=== PATIENT | male | born 1935 | race Caucasian/White ===

== ENCOUNTER 2016-05-04 22:53 | Emergency (ER) | payer MEDICARE, OTHER ==
[2016-05-04 23:34] VITALS: BP 133/71
--- NOTE | 2016-05-04 23:34 | EDM.PDOC ---
ED HPI GENERAL MEDICAL PROBLEM - General Chief Complaint: General Stated Complaint: SURGERY ON ;DISORIENTED Time Seen by Provider: 05/04/16 23:32 Source of Information: Reports: Patient, Family History Limitations: Reports: No limitations - History of Present Illness INITIAL COMMENTS - FREE TEXT/NARRATIVE: family states Pt s/p surgery 3 days taking pain meds but got confused not himself, PMD rec' to ER for r/o sepsis. Pt has no c/o & pain free. - Related Data Allergies Allergy/AdvReac Type Severity Reaction Status Date / Time No Known Allergies Allergy Verified 05/04/16 23:36 Home Meds: Home Meds Oxybutynin 10 mg PO BEDTIME 11/17/14 [History] Simvastatin [Simvastatin] 10 mg PO BEDTIME 11/17/14 [History] Terazosin [Hytrin] 5 mg PO BEDTIME 11/17/14 [History] metFORMIN [Glucophage XR] 1,000 mg PO BID 11/17/14 [History] Cyanocobalamin (Vitamin B-12) [B-12] 1,000 mcg PO DAILY 08/26/15 [History] Ketorolac [Acular 0.5% Ophth Soln] 1 drop EYEBOTH ASDIRECTED PRN 02/28/16 [ History] Moxifloxacin [Vigamox 0.5% Ophth Soln] 1 drop EYEBOTH ASDIRECTED 02/28/16 [ History] prednisoLONE Acetate [Pred Forte 1% Ophth Susp] 1 drop EYEBOTH ASDIRECTED [History] oxyCODONE HCl/Acetaminophen [oxyCODONE-Acetaminophen 5-325] 1 tab PO Q4H PRN [History] Past Medical History HEENT History: Reports: Cataract, Hard of hearing Other HEENT History: wears glasses Cardiovascular History: Reports: Aneurysm Respiratory History: Reports: None Gastrointestinal History: Reports: Chronic diarrhea Genitourinary History: Reports: Renal calculus Other Genitourinary History: urge incontinence of urine Musculoskeletal History: Reports: None, Arthritis, Back pain, chronic Neurological History: Reports: None Psychiatric History: Reports: None Endocrine/Metabolic History: Reports: Diabetes, type II Hematologic History: Reports: B12 deficiency, Idiopathic thrombocytopenia Immunologic History: Reports: None Oncologic (Cancer) History: Reports: Prostate Dermatologic History: Reports: None - Infectious Disease History Infectious Disease History: Reports: Chicken pox, Shingles - Past Surgical History Head Surgeries/Procedures: Reports: None HEENT Surgical History: Reports: Cataract surgery Cardiovascular Surgical History: Reports: None GI Surgical History: Reports: Hernia, inguinal Male Surgical History: Reports: Prostate Biopsy Social & Family History - Tobacco Use Smoking Status *Q: Former Smoker Years of Tobacco use: 40 Packs/Tins Daily: 2 Month Tobacco Last Used: july Second Hand Smoke Exposure: No - Caffeine Use Caffeine Use: Reports: Coffee - Recreational Drug Use Recreational Drug Use: No - Living Situation & Occupation Living situation: Reports: alone Occupation: retired ED ROS GENERAL - Review of Systems Review Of Systems: ROS reveals no pertinent complaints other than HPI. ED EXAM, GENERAL - Physical Exam Exam: See Below Exam Limited By: No limitations General Appearance: alert, WD/WN, no apparent distress Ears: hearing grossly normal Throat/Mouth: Normal voice, No airway compromise Head: atraumatic Neck: non-tender, full range of motion Respiratory/Chest: no respiratory distress Cardiovascular: regular rate, rhythm GI/Abdominal: soft, non tender. No: distended, guarding, rigid, rebound, tender Neurological: alert, oriented, normal cognition, normal gait, no motor/sensory deficits Psychiatric: normal affect, normal mood Skin Exam: Warm, Dry Lymphatic: no adenopathy Course - Vital Signs Last Recorded V/S: Last Vital Signs Temp 36.9 C 05/04/16 23:24 Pulse 93 05/04/16 23:24 Resp 20 05/04/16 23:24 BP 133/71 05/04/16 23:24 Pulse Ox 94 L 05/04/16 23:24 - Orders/Labs/Meds Orders: Active Orders 24 hr Category Date Time Status CULTURE BLOOD [BC] Stat Lab 05/04/16 23:53 Received Labs: Laboratory Tests 05/04/16 05/04/16 05/04/16 Range/Units 23:53 23:53 23:53 WBC 6.3 (5.0-10.0) 10^3/uL RBC 4.22 L (4.6-6.2) 10^6/uL Hgb 12.8 L (14.0-18.0) g/dL Hct 37.0 L (40.0-54.0) % MCV 87.7 (80-100) fL MCH 30.3 (27.0-34.0) pg MCHC 34.6 (33.0-35.0) g/dL Plt Count 108 L (150-450) 10^3/uL Neut % (Auto) 69.2 (42.2-75.2) % Lymph % (Auto) 19.3 L (20.5-50.1) % [place] % (Auto) 10.0 H (2-8) % Eos % (Auto) 1.3 (1.0-3.0) % Baso % (Auto) 0.2 (0.0-1.0) % Sodium 136 (135-145) mmol/L Potassium 3.6 (3.6-5.0) mmol/L Chloride 96 L (101-111) mmol/L Carbon Dioxide 30.0 (21.0-31.0) mmol/L Anion Gap 13.6 BUN 12 (7-18) mg/dL Creatinine 1.0 (0.6-1.3) mg/dL Est Cr Clr Drug Dosing 57.00 mL/min Estimated GFR (MDRD) > 60 BUN/Creatinine Ratio 12.00 Glucose 212 H (74-105) mg/dL Lactic Acid 1.2 (0.5-2.2) mmol/L Calcium 8.9 (8.4-10.2) mg/dl Total Bilirubin 1.1 H (0.2-1.0) mg/dL AST 17 (10-42) IU/L ALT 9 L (10-60) IU/L Alkaline Phosphatase 47 (42-121) IU/L Total Protein 6.9 (6.7-8.2) g/dl Albumin 3.9 (3.2-5.5) g/dl Globulin 3.0 Albumin/Globulin Ratio 1.30 - Re-Assessments/Exams Free Text/Narrative Re-Assessment/Exam: 05/05/16 00:52 results discussed with Pt & family. Departure - Departure Time of Disposition: 00:52 Disposition: Home, Self-Care 01 Condition: good Clinical Impression: Medication reaction Forms: ED Department Discharge Additional Instructions: 1) only give pain meds if need them for pain 2) follow up with family doctor or recheck as needed - My Orders Last 24 Hours: My Active Orders 05/04/16 23:53 CULTURE BLOOD [BC] Stat - Assessment/Plan Last 24 Hours: My Active Orders 05/04/16 23:53 CULTURE BLOOD [BC] Stat
[2016-05-05 00:32] LABS: CHLORIDE,CL 96 mmol/L (101-111); SODIUM,NA 136 mmol/L (135-145)
== END 2016-05-05 01:01 | disposition home or self-care (01) ==
LOC: DL.ED 22:53
DX: T50.905A Adverse effect of unspecified drugs, medicaments and biological substances, initial encounter (principal); E11.9 Type 2 diabetes mellitus without complications; Z87.891 Personal history of nicotine dependence
CPT/HCPCS: 36415; 80053; 83605; 85025; 87040; 99282; 99284

== ENCOUNTER 2016-06-22 13:49 | Emergency (ER) | payer MEDICARE, OTHER ==
[2016-06-22 14:15] VITALS: BP 135/71
--- NOTE | 2016-06-22 14:47 | EDM.PDOC ---
{null, ED HPI GENERAL MEDICAL PROBLEM - General Chief Complaint: Upper Extremity Injury/Pain Stated Complaint: [id number] PAIN IN RIGHT ARM Time Seen by Provider: 06/22/16 14:40 Source of Information: Reports: Patient History Limitations: Reports: No Limitations - History of Present Illness INITIAL COMMENTS - FREE TEXT/NARRATIVE: This 80 yo male patient reports to the ED with intermittent right upper arm pain. The patient reports his pains started this morning with very frequent episodes. The patient reports he has continued to have intermittent episodes of pain, but they seem to be getting further apart. The patient recently had surgery for multiple aneurisms, but had a good check up within the past week. Onset: Today Duration: Intermittent Location: Reports: Upper Extremity, Right Quality: Reports: Ache, Sharp Severity: Severe Improves with: Reports: None Worsens with: Reports: None Associated Symptoms: Reports: No Other Symptoms Right Upper Arm Pain Score (Numeric/FACES): 10 - Related Data Allergies Allergy/AdvReac Type Severity Reaction Status Date / Time No Known Allergies Allergy Verified 05/04/16 23:36 Home Meds: Home Meds Oxybutynin 10 mg PO BEDTIME 11/17/14 [History] Simvastatin [Simvastatin] 10 mg PO BEDTIME 11/17/14 [History] Terazosin [Hytrin] 5 mg PO BEDTIME 11/17/14 [History] metFORMIN [Glucophage XR] 1,000 mg PO BID 11/17/14 [History] Cyanocobalamin (Vitamin B-12) [B-12] 1,000 mcg PO DAILY 08/26/15 [History] Ketorolac [Acular 0.5% Ophth Soln] 1 drop EYEBOTH ASDIRECTED PRN 02/28/16 [ History] Moxifloxacin [Vigamox 0.5% Ophth Soln] 1 drop EYEBOTH ASDIRECTED 02/28/16 [ History] prednisoLONE Acetate [Pred Forte 1% Ophth Susp] 1 drop EYEBOTH ASDIRECTED [History] oxyCODONE HCl/Acetaminophen [oxyCODONE-Acetaminophen 5-325] 1 tab PO Q4H PRN [History] Past Medical History HEENT History: Reports: Cataract, Hard of Hearing Other HEENT History: wears glasses Cardiovascular History: Reports: Aneurysm Respiratory History: Reports: None Gastrointestinal History: Reports: Chronic Diarrhea Genitourinary History: Reports: Renal Calculus Other Genitourinary History: urge incontinence of urine Musculoskeletal History: Reports: None, Arthritis, Back Pain, Chronic Neurological History: Reports: None Psychiatric History: Reports: None Endocrine/Metabolic History: Reports: Diabetes, Type II Hematologic History: Reports: B12 Deficiency, Idiopathic Thrombocytopenia Immunologic History: Reports: None Oncologic (Cancer) History: Reports: Prostate Dermatologic History: Reports: None - Infectious Disease History Infectious Disease History: Reports: Chicken Pox, Shingles - Past Surgical History Head Surgeries/Procedures: Reports: None HEENT Surgical History: Reports: Cataract Surgery Cardiovascular Surgical History: Reports: None GI Surgical History: Reports: Hernia, Inguinal Social & Family History - Tobacco Use Smoking Status *Q: Never Smoker Years of Tobacco use: 40 Packs/Tins Daily: 2 Month Tobacco Last Used: july Second Hand Smoke Exposure: No - Caffeine Use Caffeine Use: Reports: Coffee - Recreational Drug Use Recreational Drug Use: No - Living Situation & Occupation Living situation: Reports: Alone Occupation: Retired Review of Systems - Review of Systems Review Of Systems: ROS reveals no pertinent complaints other than HPI. Trauma Exam - Physical Exam Exam: See Below Exam Limited By: No Limitations General Appearance: Reports: Alert, WD/WN, Moderate Distress Head: Reports: Atraumatic, Normocephalic Eyes: Bilateral Eye: EOMI, Normal Inspection, PERRL Ears: Reports: Normal External Exam, Normal Canal, Hearing Grossly Normal, Normal TMs Nose: Reports: Normal Inspection, Normal Mucousa, No Blood Throat/Mouth: Reports: Normal Inspection, Normal Lips, Normal Teeth, Normal Gums , Normal Oropharynx, Normal Voice, No Airway Compromise Neck: Reports: Non-Tender, Full Range of Motion, Normal Alignment, Normal Inspection Respiratory Exam: Reports: No Respiratory Distress, Lungs Clear, Normal Breath Sounds Cardiovascular: Reports: Normal Peripheral Pulses, Regular Rate, Rhythm, No Edema, No Gallop, No JVD, No Murmur, No Rub GI/Abdominal: Reports: Normal Bowel Sounds, Soft, Non-Tender, No Organomegaly, No Distention, No Abnormal Bruit, No Mass (Male) Exam: Deferred Rectal (Males) Exam: Deferred Back: Reports: Full Range of Motion, Normal Inspection, Non-Tender Extremities: No Evidence of Injury, Normal Range of Motion, No Pedal Edema, Other (intermittent right upper arm pain (from elbow to shoulder)) 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 As Tested, No Motor/Sensory Deficits, Alert , Normal Mood/Affect, Oriented x 3 Skin: Reports: Normal Color, Warm/Dry - [place] Coma Score Best Eye Response ([place]): (4) Open Spontaneously Best Verbal Response ([place]): (5) Oriented Best Motor Response ([place]): (6) Obeys Commands [place] Total: 15 Course - Vital Signs Last Recorded V/S: Last Vital Signs Temp 35.8 C 06/22/16 14:14 Pulse 64 06/22/16 14:14 Resp 16 06/22/16 14:14 BP 135/71 06/22/16 14:14 Pulse Ox 98 06/22/16 14:14 - Orders/Labs/Meds Orders: Active Orders 24 hr Category Date Time Status EKG Documentation Completion [RC] URGENT Care 06/22/16 14:44 Active Labs: Laboratory Tests 06/22/16 06/22/16 Range/Units 15:09 15:09 WBC 5.1 (5.0-10.0) 10^3/uL RBC 4.24 L (4.6-6.2) 10^6/uL Hgb 12.9 L (14.0-18.0) g/dL Hct 36.7 L (40.0-54.0) % MCV 86.6 (80-100) fL MCH 30.4 (27.0-34.0) pg MCHC 35.1 H (33.0-35.0) g/dL Plt Count 121 L (150-450) 10^3/uL Neut % (Auto) 63.5 (42.2-75.2) % Lymph % (Auto) 27.1 (20.5-50.1) % [place] % (Auto) 7.4 (2-8) % Eos % (Auto) 1.8 (1.0-3.0) % Baso % (Auto) 0.2 (0.0-1.0) % Sodium 135 (135-145) mmol/L Potassium 3.8 (3.6-5.0) mmol/L Chloride 100 L (101-111) mmol/L Carbon Dioxide 29.0 (21.0-31.0) mmol/L Anion Gap 9.8 BUN 14 (7-18) mg/dL Creatinine 0.7 (0.6-1.3) mg/dL Est Cr Clr Drug Dosing 81.43 mL/min Estimated GFR (MDRD) > 60 BUN/Creatinine Ratio 20.00 Glucose 203 H (74-105) mg/dL Calcium 9.1 (8.4-10.2) mg/dl Total Bilirubin 0.9 (0.2-1.0) mg/dL AST 18 (10-42) IU/L ALT 14 (10-60) IU/L Alkaline Phosphatase 63 (42-121) IU/L Troponin I < 0.02 (0.00-0.02) ng/ml Total Protein 6.6 L (6.7-8.2) g/dl Albumin 3.9 (3.2-5.5) g/dl Globulin 2.7 Albumin/Globulin Ratio 1.44 Departure - Departure Time of Disposition: 16:00 Disposition: Home, Self-Care 01 Condition: fair Clinical Impression: Neuralgia of right upper extremity - Discharge Information Instructions: Radicular Pain Forms: ED Department Discharge Care Plan Goals: The patient was advised of the examination, lab and EKG results during the visit. The patient was encouraged to take Aleve (an anti-inflammatory medication ) over the next several days. If the patient continues to have symptoms, the patient should follow-up with his primary care provider or return to the emergency department. - My Orders Last 24 Hours: My Active Orders 06/22/16 14:44 EKG Documentation Completion [RC] URGENT - Assessment/Plan Last 24 Hours: My Active Orders 06/22/16 14:44 EKG Documentation Completion [RC] URGENT }
[2016-06-22 15:45] LABS: CHLORIDE,CL 100 mmol/L (101-111); SODIUM,NA 135 mmol/L (135-145)
--- NOTE | 2016-06-24 12:34 | EKG ---
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 No significant ST elevation or ST depression noted on this 12- lead EKG. [facility] /[id number] }
== END 2016-06-22 16:10 | disposition home or self-care (01) ==
LOC: DL.ED 13:49
DX: M79.2 Neuralgia and neuritis, unspecified (principal); M19.90 Unspecified osteoarthritis, unspecified site; E11.9 Type 2 diabetes mellitus without complications; Z98.49 Cataract extraction status, unspecified eye; Z98.890 Other specified postprocedural states; Z79.899 Other long term (current) drug therapy
CPT/HCPCS: 36415; 80053; 84484; 85025; 93005; 93010; 99283

== ENCOUNTER 2017-02-06 15:59 | Emergency (ER) | payer MEDICARE, OTHER ==
[2017-02-06] MEDS ORDERED: Ondansetron 4 MG/2 ML SDV IV ONE (16:38)
[2017-02-06] MEDS ORDERED: Sodium Chloride 0.9% 10 ML Syringe FLUSH PRN (16:38)
[2017-02-06] MEDS ORDERED: Glucagon,Human Recombinant 1 MG Vial IVPUSH ONE ×2 (16:39→17:28)
[2017-02-06 18:16] VITALS: BP 152/86
--- NOTE | 2017-02-06 18:19 | EDM.PDOC ---
Scribed by Andreea Campbell 02/06/17 1183 for Lito Matos MD ED HPI GENERAL MEDICAL PROBLEM - General Chief Complaint: Gastrointestinal Problem Stated Complaint: CHOKING. STILL STUCK IN THROAT. Time Seen by Provider: 02/06/17 16:29 Source of Information: Reports: Patient, RN, RN Notes Reviewed History Limitations: Reports: No Limitations - History of Present Illness INITIAL COMMENTS - FREE TEXT/NARRATIVE: Patient presents with complaint of roast beef stuck in his throat at 3:30p.m. He could not swallow sips of water without it coming back up. Denies cough sensation of airway obstruction. No history of prior esophageal food impaction requiring intervention, but has frequently had food get stuck and had to "work it out" to get it to go down. He has never told his doctor about food getting stuck. Onset: Today Duration: Constant Location: Reports: Other (throat) Quality: Reports: Ache Severity: Severe Improves with: Reports: None Worsens with: Reports: None Associated Symptoms: Reports: No Other Symptoms - Related Data Allergies Allergy/AdvReac Type Severity Reaction Status Date / Time No Known Allergies Allergy Verified 05/04/16 23:36 Home Meds: Home Meds Oxybutynin 10 mg PO BEDTIME 11/17/14 [History] Simvastatin [Simvastatin] 10 mg PO BEDTIME 11/17/14 [History] Terazosin [Hytrin] 5 mg PO BEDTIME 11/17/14 [History] metFORMIN [Glucophage XR] 1,000 mg PO BID 11/17/14 [History] Cyanocobalamin (Vitamin B-12) [B-12] 1,000 mcg PO DAILY 08/26/15 [History] Ketorolac [Acular 0.5% Ophth Soln] 1 drop EYEBOTH ASDIRECTED PRN 02/28/16 [ History] Moxifloxacin [Vigamox 0.5% Ophth Soln] 1 drop EYEBOTH ASDIRECTED 02/28/16 [ History] prednisoLONE Acetate [Pred Forte 1% Ophth Susp] 1 drop EYEBOTH ASDIRECTED [History] oxyCODONE HCl/Acetaminophen [oxyCODONE-Acetaminophen 5-325] 1 tab PO Q4H PRN [History] Past Medical History HEENT History: Reports: Cataract, Hard of Hearing Other HEENT History: wears glasses Cardiovascular History: Reports: Aneurysm Respiratory History: Reports: None Gastrointestinal History: Reports: Chronic Diarrhea Genitourinary History: Reports: Renal Calculus Other Genitourinary History: urge incontinence of urine Musculoskeletal History: Reports: None, Arthritis, Back Pain, Chronic Neurological History: Reports: None Psychiatric History: Reports: None Endocrine/Metabolic History: Reports: Diabetes, Type II Hematologic History: Reports: B12 Deficiency, Idiopathic Thrombocytopenia Immunologic History: Reports: None Oncologic (Cancer) History: Reports: Prostate Dermatologic History: Reports: None - Infectious Disease History Infectious Disease History: Reports: Chicken Pox, Shingles - Past Surgical History Head Surgeries/Procedures: Reports: None HEENT Surgical History: Reports: Cataract Surgery Cardiovascular Surgical History: Reports: None GI Surgical History: Reports: Hernia, Inguinal Social & Family History - Tobacco Use Smoking Status *Q: Never Smoker Years of Tobacco use: 40 Packs/Tins Daily: 2 Month Tobacco Last Used: july Second Hand Smoke Exposure: No - Caffeine Use Caffeine Use: Reports: Coffee - Recreational Drug Use Recreational Drug Use: No - Living Situation & Occupation Living situation: Reports: Alone Occupation: Retired ED ROS GENERAL - Review of Systems Review Of Systems: ROS reveals no pertinent complaints other than HPI. ED EXAM, GI/ABD - Physical Exam Exam: See Below Exam Limited By: No Limitations General Appearance: Alert, WD/WN, No Apparent Distress Eyes: Bilateral: Normal Appearance Ears: Normal External Exam, Normal Canal, Hearing Grossly Normal, Normal TMs Nose: Normal Inspection, Normal Mucosa, No Blood Throat/Mouth: Normal Inspection, Normal Lips, Normal Teeth, Normal Gums, Normal Oropharynx, Normal Voice, No Airway Compromise Head: Atraumatic, Normocephalic Neck: Normal Inspection, Supple, Non-Tender, Full Range of Motion Respiratory/Chest: No Respiratory Distress, Lungs Clear, Normal Breath Sounds, No Accessory Muscle Use, Chest Non-Tender Cardiovascular: Normal Peripheral Pulses, Regular Rate, Rhythm, No Edema, No Gallop, No JVD, No Murmur, No Rub GI/Abdominal Exam: Normal Bowel Sounds, Soft, Non-Tender, No Organomegaly, No Distention, No Abnormal Bruit, No Mass, Pelvis Stable (Male) Exam: Deferred Rectal (Males) Exam: Deferred Back Exam: Normal Inspection, Full Range of Motion, NT Extremities: Normal Inspection, Normal Range of Motion, Non-Tender, Normal Capillary Refill, No Pedal Edema Neurological: Alert, Oriented, CN II-XII Intact, Normal Cognition, Normal Gait, Normal Reflexes, No Motor/Sensory Deficits Psychiatric: Normal Affect, Normal Mood Skin Exam: Warm, Dry, Intact, Normal Color, No Rash Course - Vital Signs Last Recorded V/S: Last Vital Signs Temp 36.7 C 02/06/17 16:30 Pulse 92 02/06/17 16:30 Resp 16 02/06/17 16:30 BP 152/86 H 02/06/17 16:30 Pulse Ox 97 02/06/17 16:30 - Orders/Labs/Meds Orders: Active Orders 24 hr Category Date Time Status Peripheral IV Care [RC] . DIRECTED Care 02/06/17 16:38 Active Sodium Chloride 0.9% [Saline Flush] Med 02/06/17 16:38 Active 10 ml FLUSH ASDIRECTED PRN Peripheral IV Insertion Adult [OM.PC] Stat Oth 02/06/17 16:38 Ordered Medication Orders Sodium Chloride (Saline Flush) 10 ml FLUSH ASDIRECTED PRN PRN Reason: Keep Vein Open Last Admin: 02/06/17 16:51 Dose: 10 ml Meds: Medications Generic Name Dose Route Start Last Admin Trade Name Freq PRN Reason Stop Dose Admin Sodium Chloride 10 ml 02/06/17 16:38 02/06/17 16:51 Saline Flush FLUSH 10 ml ASDIRECTED PRN Administration Keep Vein Open Discontinued Medications Generic Name Dose Route Start Last Admin Trade Name Freq PRN Reason Stop Dose Admin Glucagon 1 mg 02/06/17 16:39 02/06/17 16:50 Glucagen IVPUSH 02/06/17 16:40 1 mg ONETIME ONE Administration Glucagon 1 mg 02/06/17 17:28 02/06/17 17:40 Glucagen IVPUSH 02/06/17 17:29 1 mg ONETIME ONE Administration Ondansetron HCl 4 mg 02/06/17 16:38 02/06/17 16:51 Zofran IV 02/06/17 16:39 4 mg ONETIME ONE Administration - Re-Assessments/Exams Free Text/Narrative Re-Assessment/Exam: 02/06/17 17:55 Patient failed IV Glucagon 1mg x2. Due to no available of GI/endoscopy here he will be transferred to a higher level of care. 02/06/17 18:15 Patient transferred to [facility] after consulting Dr. Jacobs via [facility]. [facility] nurse state they haveGI and endoscopy leaf conditioner helper and available, however, Dr. Jacobs refuses to accept the case. Departure - Departure Time of Disposition: 18:14 Disposition: DC/Tfer to Acute Hospital 02 Condition: Fair Clinical Impression: Esophageal obstruction due to food impaction - Discharge Information Referrals: Girma Zamorano MD [Primary Care Provider] - Forms: ED Department Discharge, Interfacility Transfer EMTALA Additional Instructions: Go directly from the ER here to [facility] Emergency Room in [place]. Do not eat or drink anything until told to by the doctor in [place]. - My Orders Last 24 Hours: My Active Orders 02/06/17 16:38 Peripheral IV Care [RC] . DIRECTED Sodium Chloride 0.9% [Saline Flush] 10 ml FLUSH ASDIRECTED PRN Peripheral IV Insertion Adult [OM.PC] Stat - Assessment/Plan Last 24 Hours: My Active Orders 02/06/17 16:38 Peripheral IV Care [RC] . DIRECTED Sodium Chloride 0.9% [Saline Flush] 10 ml FLUSH ASDIRECTED PRN Peripheral IV Insertion Adult [OM.PC] Stat I have read and agree with the documentation that has been completed regarding this visit. By signing this record, I attest that the documentation was completed in my physical presence and is an accurate record of the encounter.
== END 2017-02-06 19:46 ==
LOC: DL.ED 15:59
DX: T18.128A Food in esophagus causing other injury, initial encounter (principal); K22.2 Esophageal obstruction; E11.9 Type 2 diabetes mellitus without complications; Z79.84 Long term (current) use of oral hypoglycemic drugs; X58.XXXA Exposure to other specified factors, initial encounter
CPT/HCPCS: 99282; J1610; J2405; J7050; 99284

== ENCOUNTER 2017-02-06 19:08 | Emergency (ER) | payer MEDICARE, OTHER | END 2017-02-06 19:30 | disposition left against medical advice (07) | LOC: DL.ED 19:08 | DX: Z53.21 Procedure and treatment not carried out due to patient leaving prior to being seen by health care provider (principal) ==